=== PATIENT | male | born 1965 | race Caucasian/White ===

== ENCOUNTER 2021-11-09 20:45 | Emergency (ER) | payer MEDICAID, OTHER ==
[~2021-11-09] VITALS: Ht 177.8 cm; Wt 74.8 kg
--- NOTE | 2021-11-09 20:45 | NUR ---
YAN 76 FROM FOR ETOH. A, [facility] ON TRIAGE. ADMITTED ON DRINKING BEER. NOTED W/ MULTIPLE ABRASIONS DUE TO "ROLLING ON THE FLOOR" PER EMS. PLACED ON BED, MULTIPLE ABRASIONS NOTED, AWAKE ALERT TALKATIVE.
--- NOTE | 2021-11-09 21:22 | NUR ---
BLOOD COLLECTED AND SENT TO LAB
[2021-11-09 21:27] LABS: BASOPHILS # (AUTO) 0.1 K/uL (0.0-0.2); BASOPHILS % (AUTO) 1.4 % (0.0-2.0); EOSINOPHILS % (AUTO) 1.4 % (0.0-6.0); HEMATOCRIT 40 % (39-51); HEMOGLOBIN 13.7 g/dL (13.5-17.5); LYMPHOCYTES # (AUTO) 1.3 K/uL (0.8-4.8); LYMPHOCYTES % (AUTO) 30.3 % (20.0-44.0); MEAN CORPUSCULAR HGB CONC 34 g/dl (31.0-36.0); MEAN CORPUSCULAR VOLUME 106 fL (80-96); MONOCYTES # (AUTO) 0.4 K/uL (0.1-1.30); MONOCYTES % (AUTO) 10.4 % (2.0-12.0); NEUTROPHILS # (AUTO) 2.4 K/uL (1.8-8.9); NEUTROPHILS % (AUTO) 56.5 % (43.0-81.0); PLATELET COUNT (AUTO) 233 K/uL (150-450); RED BLOOD CELL COUNT(AUTO) 3.77 MIL/uL (4.5-6.0); WHITE BLOOD COUNT (AUTO) 4.3 K/uL (4.3-11.0)
[2021-11-09] MEDS ORDERED: IV NS 0.9% 1,000 ML BAG IV ONE (21:30)
--- NOTE | 2021-11-09 21:35 | NUR ---
PT TAKEN TO CT VIA [facility]
[2021-11-09 21:42] LABS: CALCIUM, SERUM 8.3 mg/dL (8.5-10.1); CREATININE 0.8 mg/dL (0.6-1.3); POTASSIUM 3.4 mmol/L (3.5-5.1)
--- NOTE | 2021-11-09 21:46 | NUR ---
PT RETURNED TO ER BED [address]
[2021-11-09 21:50] LABS: ALBUMIN 3.8 g/dL (3.4-5.0); BILIRUBIN,DIRECT 0.2 mg/dL (0.0-0.2); BILIRUBIN,TOTAL 0.5 mg/dL (0.2-1.0); TOTAL PROTEIN, SERUM 7.6 g/dL (6.4-8.2)
[2021-11-09 22:37] LABS: BAND % (MANUAL) 4 % (0.0-5.0); LYMPHOCYTES % (MANUAL) 32 % (16-48); MONOCYTES % (MANUAL) 10 % (0-11.0)
[2021-11-09 22:38] LABS: EOSINOPHILS % (MANUAL) 1 % (0-4); NEUTROPHILS % (MANUAL) 53 (42-76)
--- NOTE | 2021-11-09 23:39 | NUR ---
CALLED [facility] TO F/U WITH CT REPORT
--- NOTE | 2021-11-10 04:30 | NUR ---
WARM BLANKETS PROVIDED, CONNECTED TO MONITOR. WILL CONTINUE TO MONITOR.
--- NOTE | 2021-11-10 05:10 | NUR ---
Patient is awake and alert to self, day, and place. PT ambulatory with a steady gait. Pt requesting to be discharged home.
--- NOTE | 2021-11-10 05:17 | NUR ---
Pt ok to be discharged home per Dr Prather. IV removed. Catheter intact and site benign. Pressure and 4x4 applied to site. No bleeding noted.Patient discharged to home in stable condition. Written and verbal after care instructions given. Patient verbalizes understanding of instruction.Patient is awake and alert to self, day, and place. pt ambulatory with a steady gait
[2021-11-10 05:18] VITALS: BP 142/65
== END 2021-11-10 05:19 | disposition home or self-care (01) ==
LOC: ER 20:47
DX: S00.11XA Contusion of right eyelid and periocular area, initial encounter (principal); S80.211A Abrasion, right knee, initial encounter; F10.129 Alcohol abuse with intoxication, unspecified; D75.89 Other specified diseases of blood and blood-forming organs; R74.01 Elevation of levels of liver transaminase levels; E87.6 Hypokalemia; Z59.00 Homelessness unspecified; W18.30XA Fall on same level, unspecified, initial encounter; Y93.89 Activity, other specified; Y92.89 Other specified places as the place of occurrence of the external cause; Y99.8 Other external cause status; Y90.8 Blood alcohol level of 240 mg/100 ml or more
CPT/HCPCS: 36415; 70450; 70486; 72125; 80048; 80076; 80320; 82962; 83690; 85007; 85025; 96360; 99284; J7030; G0480

== ENCOUNTER 2024-01-08 12:33 | Emergency (ER) | payer MEDICAID ==
[~2024-01-08] VITALS: Ht 162.6 cm; Wt 74.8 kg
[~2024-01-08 12:33] MED LIST: ACET-2605 PO; IBUP-1955 PO; SILV50CR32 TP
[2024-01-08 15:33] VITALS: BP 128/64; TEMP 98.5; O2SAT 98
== END 2024-01-08 15:33 | disposition home or self-care (01) ==
LOC: ER 12:41
DX: Z00.8 Encounter for other general examination (principal); Z79.1 Long term (current) use of non-steroidal anti-inflammatories (NSAID); Z98.890 Other specified postprocedural states; Z60.2 Problems related to living alone